=== PATIENT | female | born 2000 | race Caucasian/White ===

== ENCOUNTER → 2024-03-12 | Outpatient (CLI) | payer MEDICAID ==
[~2024-03-12] MED LIST: ONDA4TAB12 PO
== END | disposition home or self-care (01) ==
LOC: RAD 16:24
PROVIDERS: ATTEND Nurse Practitioner Obstetrics & Gynecology
DX: O09.92 Supervision of high risk pregnancy, unspecified, second trimester (principal); Z3A.32 32 weeks gestation of pregnancy
CPT/HCPCS: 76811

== ENCOUNTER 2024-03-18 14:41 | Emergency (ER) | payer OTHER, MEDICAID ==
[~2024-03-18] VITALS: Ht 167.6 cm; Wt 68.0 kg
[2024-03-18 16:02] VITALS: BP 116/72; PULSE 68; RESP 12; TEMP 97.3; O2SAT 98
== END 2024-03-18 16:04 | disposition home or self-care (01) ==
LOC: ER 14:42
DX: O9A.212 Injury, poisoning and certain other consequences of external causes complicating pregnancy, second trimester (principal); Z3A.22 22 weeks gestation of pregnancy; Z88.1 Allergy status to other antibiotic agents; Z79.899 Other long term (current) drug therapy; V89.2XXA Person injured in unspecified motor-vehicle accident, traffic, initial encounter; Y93.89 Activity, other specified; Y92.89 Other specified places as the place of occurrence of the external cause; Y99.8 Other external cause status
CPT/HCPCS: 76815; 99284